=== PATIENT | male | born 1940 | race Caucasian/White ===

== ENCOUNTER 2017-10-19 09:02 | Day surgery (SDC) | payer MEDICARE, OTHER ==
[~2017-10-19] VITALS: Ht 175.3 cm; Wt 87.2 kg
[2017-10-19] MEDS ORDERED: LIPITOR20 MG PO ×2 (09:26→09:27)
[2017-10-19] MEDS ORDERED: PRINIVIL40 MG PO (09:26)
[2017-10-19] MEDS ORDERED: GLUCOPHAGE500 MG/TAB PO (09:28)
[2017-10-19] MEDS ORDERED: B-12 100 MCG PO (09:28)
[2017-10-19] MEDS ORDERED: XALATAN EYE DROPS OU (09:29)
[2017-10-19] MEDS ORDERED: COMBIGAN 0.2%-0.5 ML OU (09:30)
[2017-10-19] MEDS ORDERED: TRUSOPT OCUMETE10 ML OU (09:31)
[2017-10-19] MEDS ORDERED: ADVIL200 MG PO (09:31)
[2017-10-19 09:59] VITALS: BP 161/74; PULSE 50; TEMP 97.6
[2017-10-19 10:50] VITALS: BP 100/41; PULSE 53; TEMP 97.6
[2017-10-19 11:15] VITALS: BP 113/47; PULSE 48
[2017-10-19 11:30] VITALS: BP 122/74; PULSE 48
[2017-10-19 15:35] VITALS: BP 91/61; PULSE 56
== END 2017-10-19 12:05 | disposition home or self-care (01) ==
LOC: SDCO 09:02
DX: Z12.11 Encounter for screening for malignant neoplasm of colon (principal); Z86.010 Personal history of colon polyps; D12.2 Benign neoplasm of ascending colon; K59.00 Constipation, unspecified; K57.30 Diverticulosis of large intestine without perforation or abscess without bleeding; Z79.899 Other long term (current) drug therapy
CPT/HCPCS: J2250; J3010; J7042

== ENCOUNTER → 2020-08-31 | Outpatient (CLI) | payer MEDICARE, OTHER ==
[~2020-08-31] MED LIST: ADVIL200 MG PO; B-12 100 MCG PO; COMBIGAN 0.2%-0.5 ML OU; GLUCOPHAGE500 MG/TAB PO; LIPITOR20 MG PO; PRINIVIL40 MG PO; TRUSOPT OCUMETE10 ML OU; XALATAN EYE DROPS OU
== END ==
LOC: COL.RAD 14:48
DX: G30.1 Alzheimer's disease with late onset (principal); F02.81 Dementia in other diseases classified elsewhere, unspecified severity, with behavioral disturbance; G47.52 REM sleep behavior disorder; F51.5 Nightmare disorder

== ENCOUNTER → 2021-02-16 | Outpatient (CLI) | payer MEDICARE, OTHER ==
[~2021-02-16] MED LIST changes: +ARICEPT10 MG PO; -B-12 100 MCG PO; +BENADRYL25 M2 PO; +CEPHALEXIN500 M1 PO; +HCTZ 25MG TAB25 MG PO; +NAMENDA 10MG TA10 MG PO; +SEROQUEL50 MG PO; +VITAMIN B12 781 TAB PO; +VITRUM SENIOR1 TA2 PO
== END ==
LOC: COL.CARD 09:29
DX: G30.1 Alzheimer's disease with late onset (principal); F02.81 Dementia in other diseases classified elsewhere, unspecified severity, with behavioral disturbance; G47.52 REM sleep behavior disorder; I63.9 Cerebral infarction, unspecified
CPT/HCPCS: J2704

== ENCOUNTER → 2021-04-08 | Outpatient (CLI) | payer MEDICARE, OTHER | LOC: COL.RAD 08:35 | DX: R93.89 Abnormal findings on diagnostic imaging of other specified body structures (principal) ==

== ENCOUNTER → 2021-05-20 | Outpatient (CLI) | payer MEDICARE, OTHER | LOC: COL.RAD 11:29 | DX: R22.1 Localized swelling, mass and lump, neck (principal) ==

== ENCOUNTER 2021-09-28 12:17 | Inpatient (IN) | payer MEDICARE, OTHER ==
[~2021-09-28] VITALS: Ht 175.3 cm; Wt 84.7 kg
[2021-09-28 13:08] LABS: BASO % 0.7 % (0.0-2.0); EOS # 0.2 K/mm3 (0.0-0.7); EOS % 3.3 % (0.0-4.0); GRAN % 66.3 % (42.2-75.2); LYMPH # 0.9 K/mm3 (1.2-3.4); LYMPH % 19.6 % (20.0-51.0); MEAN CELL VOLUME 100 fl (80.0-100.0); MEAN CORPUSCULAR HEMOGLOBIN 32 pg (27-31); MEAN CORPUSCULAR HGB CONC 32 g/dl (33.0-37.0); MEAN PLATELET VOLUME 10.4 fl (7.4-10.4); MONO # 0.5 K/mm3 (0.1-0.6); MONO % 9.9 % (1.7-9.3); PLATELET COUNT 167 K/mm3 (130-400); RED BLOOD COUNT 3.44 M/mm3 (4.20-5.60); REDCELL DISTRIBUTION WIDTH-CV 13.5 % (11.5-14.5)
[2021-09-28 13:11] LABS: HEMATOCRIT 34.3 % (42.0-52.0)
[2021-09-28 13:24] LABS: ALANINE AMINOTRANSFERASE 15 U/L (0-55); ALBUMIN 3.5 gm/dL (3.4-4.8); ALKALINE PHOSPHATASE 74 U/L (40-150); ANION GAP 7 mmol/L (7-16); AST,SGOT 13 U/L (5-34); BILIRUBIN,TOTAL 0.5 mg/dL (0.2-1.2); BLOOD UREA NITROGEN 79 mg/dL (8-26); CALCIUM 9.1 mg/dL (8.4-10.2); CARBON DIOXIDE 15 mmol/L (23-31); CHLORIDE 118 mmol/L (98-107); CREATININE, serum 3.69 mg/dL (0.72-1.25); GLUCOSE 89 mg/dL (70-99); SODIUM 140 mmol/L (136-145); TOTAL PROTEIN 6.9 gm/dL (6.2-8.1)
[2021-09-28 13:28] LABS: COLLECTION METHOD CLEAN CATCH
[2021-09-28 13:31] LABS: POTASSIUM 6.3 mmol/L (3.5-4.5); TROPONIN-I < 0.010 ng/mL (0.00-0.033)
[2021-09-28 13:57] LABS: MUCOUS Present (NOT PRESENT); PH 5 (5-8); SQUAMOUS EPITHELIAL 0-2 /hpf (0-10); URINE APPEARANCE Hazy (CLEAR/HAZY); URINE BACTERIA None Seen /hpf (NONE SEEN); URINE BLOOD Negative (NEGATIVE); URINE GLUCOSE Negative (NEGATIVE); URINE KETONE Negative (NEGATIVE); URINE NITRATE Negative (NEGATIVE); URINE PROTEIN(semi-quant) Negative (NEGATIVE); URINE RBC 0-2 /hpf (0-2); URINE UROBILINOGEN Negative (NEGATIVE)
[2021-09-28 14:01] LABS: URINE COLOR Yellow (YELLOW)
[2021-09-28] MEDS ORDERED: NAMZARIC1 ECC PO (15:31)
[2021-09-28] MEDS ORDERED: GLUCOPHAGE500 MG/TAB PO (15:32)
[2021-09-28] MEDS ORDERED: B-121000 MCG PO (15:32)
[2021-09-28] MEDS ORDERED: COREG 3.123.125 MG/T PO (15:33)
[2021-09-28] MEDS ORDERED: ASPIRIN 32325 MG/TAB PO (15:33)
[2021-09-28] MEDS ORDERED: PLAVIX 75MG TAB75 MG PO (15:34)
[2021-09-28] MEDS ORDERED: HCTZ12.5TAB PO (15:34)
--- NOTE | 2021-09-28 15:37 | NUR ---
PATIENT ARRIVED TO UNIT IN STABLE CONDITION WITH DAUGHTER. VITALS WNL. NO COMPLAINTS AT THIS TIME. ASSESSMENTS AND MED REC COMPLETED BY THIS NURSE. ODESSA WITH NEPHRO IN WITH PATIENT NOW. CALL PLACED TO PHARMACY FOR MEDICATION NEEDED PER EMAR. PATIENT IS A&O X4, DOES HAVE HISTORY OF DEMENTIA THAT DAUGHTER STATES IS MILD. ABLE TO AMBULATE WELL ON OWN, INDEPENDENT AT HOME. NO SKIN ISSUES IDENTIFIED. CONTINENT OF B/B. FEEDS SELF. TAKES MEDS WHOLE. DAUGHTER STATES PATIENT DOES NOT DRINK FLUIDS WELL AND NEEDS CONSTANT ENCOURAGEMENT.
[2021-09-28 16:39] LABS: BASO % 0.7 % (0.0-2.0); EOS # 0.1 K/mm3 (0.0-0.7); EOS % 2.8 % (0.0-4.0); GRAN # 2.9 K/mm3 (1.4-6.5); GRAN % 63.5 % (42.2-75.2); HEMOGLOBIN 10.4 g/dl (13.5-18.0); LYMPH # 1.1 K/mm3 (1.2-3.4); MEAN CELL VOLUME 101 fl (80.0-100.0); MEAN CORPUSCULAR HEMOGLOBIN 32 pg (27-31); MEAN CORPUSCULAR HGB CONC 31 g/dl (33.0-37.0); MEAN PLATELET VOLUME 10.4 fl (7.4-10.4); MONO # 0.5 K/mm3 (0.1-0.6); MONO % 9.8 % (1.7-9.3); PLATELET COUNT 153 K/mm3 (130-400); RED BLOOD COUNT 3.29 M/mm3 (4.20-5.60); REDCELL DISTRIBUTION WIDTH-CV 13.5 % (11.5-14.5)
[2021-09-28 16:43] LABS: ALBUMIN 3.1 gm/dL (3.4-4.8); CALCIUM 8.7 mg/dL (8.4-10.2); CREATININE, serum 3.39 mg/dL (0.72-1.25); PHOSPHOROUS 3.4 mg/dL (2.3-4.7); POTASSIUM 5.6 mmol/L (3.5-4.5)
[2021-09-28 17:01] LABS: HEMATOCRIT 33.2 % (42.0-52.0)
[2021-09-28 20:56] VITALS: BP 135/55; PULSE 54; TEMP 98.7
--- NOTE | 2021-09-28 22:33 | NUR ---
POST VOID RESIDUAL ASSESSED IMMEDIATELY AFTER PT HAD AN UNMEASURED VOID. POST VOID RESIDUAL WAS 3 ML. WILL CONTINUE TO MONITOR.
--- NOTE | 2021-09-28 23:53 | NUR ---
Pt alert and oriented. Follows commands. Resting quietly. Denies pain at this time. Completed post-void residual per orders. Pt had 3ml in bladder after void. Pt tolerating PO. Monitoring intake and output. Shift assessment performed. Medications administered and education provided. VS stable. Afebrile. Satting WNL on room air. BP stable. HR running sinus imani in upper 50's. No significant skin issues noted. Pt stanby assist to BR, steady gate. Monitoring FSBS AC and HS. Pt does not report any questions at this time, will continue to monitor.
[2021-09-29 00:59] VITALS: BP 126/58; PULSE 48; PULSE 50; TEMP 98.2
[2021-09-29 04:02] VITALS: BP 120/62; PULSE 65; TEMP 98
--- NOTE | 2021-09-29 05:44 | NUR ---
No adverse events overnight. Pt alert and oriented, resting quietly. Pt denies chest pain/nausea/vomiting/weakness. Tolerating PO. Up to void x1 overnight. Post void residual recorded in previous note. VS stable. Afebrile. Remains on room air. HR in 50's overnight. FSBS monitored ACHS. Pt does not report any questions at this time, will continue to monitor.
--- NOTE | 2021-09-29 06:17 | NUR ---
Second post void residual taken. Pt voided 350 ml. Residual assessed immediately after and 2 ml was recorded in the bladder. Will continue to monitor.
[2021-09-29 07:34] VITALS: BP 125/59; PULSE 56; TEMP 97.9
--- NOTE | 2021-09-29 09:00 | NUR ---
PATIENT IV TO LEFT AC INFILTRATED AND CAUSING PAIN WITH FLUSHING, NO BLOOD RETURN. REMOVED. NEW IV START TO RIGHT HAND 22 GUAGE, TOLERATED WELL. FLUIDS INFUSING PER ORDER.
--- NOTE | 2021-09-29 09:52 | NUR ---
Initial visit; Patient and daughter thanked [employer] for looking in on him and offering God's blessings and to keep him in her prayers.
[2021-09-29 11:09] VITALS: BP 105/51; PULSE 57; TEMP 98.1
--- NOTE | 2021-09-29 12:01 | NUR ---
INES met with the patient to discuss discharge plan. The patient lives in [place] with his , Gloria, and their daughter, Giovanny (ph#[phone]). He reports independence with ADLs and has a cane. The patient's PCP is Dr. Morris Aviles. He states that his daughter picks up his medications for him. INES contacted the patient's daughter, Giovanny, to review the above. She confirms that she lives with the patient and his (her mother) and helps take care of them. She states that the patient is very independent. He receives his medications from [facility] in . The patient does not have a DPOA-HC in EMR, but Giovanny states that the patient does have one completed and that Dr. Aviles's office should have a copy of the document. PT are recommending home and have signed off of the patient, due to him being independent in the room. Lamontarnol confirms that the plan is for the patient to return home with family upon discharge. INES attempted to contact Chely at [facility] to request a copy of the patient's DPOA-HC. INES left a message with the security nurse. No additional needs at this time. *Discharge plan: home with family*
[2021-09-29 15:16] VITALS: BP 125/62; PULSE 54; TEMP 98.5
[2021-09-29 20:31] VITALS: BP 150/71; PULSE 73; TEMP 98.6
[2021-09-30 00:06] VITALS: BP 93/54; PULSE 56; TEMP 98.4
--- NOTE | 2021-09-30 04:06 | NUR ---
Pt alert and oriented, resting queitly, follows commands. IV fluids continuing. New IV started in the RAC after pt's other IV was pulled out. Pt denies pain at this time. Pt up to void, steady gait. Shift assessment performed. Medications administered per orders and education provided. VS stable. Afebrile. On room air. Pt tolerating PO. Resting queitly. Denies dizziness/weakness/nausea/vomiting. Pt does not report any questions at this time, will continue to monitor.
[2021-09-30 04:30] VITALS: BP 104/47; PULSE 87; TEMP 98.2
--- NOTE | 2021-09-30 06:20 | NUR ---
No adverse events overnight. Pt alert and oriented, follows commands. Resting queitly this morning. IV fluids continue. Pt denies pain. Denies nausea/ligtheadedness/weakness. Steady gait. Tolerating PO. VS stable. On room air. Pt does not report any questions at this time, will continue to monitor.
[2021-09-30 07:13] VITALS: BP 103/51; PULSE 52; TEMP 98.2
[2021-09-30 10:39] LABS: ALBUMIN 3.1 gm/dL (3.4-4.8); CALCIUM 8.8 mg/dL (8.4-10.2); CREATININE, serum 2.49 mg/dL (0.72-1.25); PHOSPHOROUS 2.7 mg/dL (2.3-4.7); POTASSIUM 4.9 mmol/L (3.5-4.5)
[2021-09-30 11:19] VITALS: BP 111/50; PULSE 53; TEMP 97.4
== END 2021-09-30 13:30 | disposition home or self-care (01) | DRG 641 ==
LOC: COL.ER 12:17 → MEDICAL 13:55
PROVIDERS: Emergency Medicine; Registered Nurse; ADMIT Internal Medicine Nephrology
DX: E87.5 Hyperkalemia (principal); N17.9 Acute kidney failure, unspecified; I95.9 Hypotension, unspecified; E86.0 Dehydration; E78.5 Hyperlipidemia, unspecified; H40.9 Unspecified glaucoma; N40.0 Benign prostatic hyperplasia without lower urinary tract symptoms; D63.1 Anemia in chronic kidney disease; M54.50 Low back pain, unspecified; I12.9 Hypertensive chronic kidney disease with stage 1 through stage 4 chronic kidney disease, or unspecified chronic kidney disease; E11.22 Type 2 diabetes mellitus with diabetic chronic kidney disease; N18.30 Chronic kidney disease, stage 3 unspecified; Z90.79 Acquired absence of other genital organ(s); Z79.84 Long term (current) use of oral hypoglycemic drugs; Z79.82 Long term (current) use of aspirin; Z87.891 Personal history of nicotine dependence; Z23 Encounter for immunization
CPT/HCPCS: OP; A9270; J0610; J1815; J7030

== ENCOUNTER → 2022-05-19 | Outpatient (CLI) | payer MEDICARE, OTHER ==
[~2022-05-19] MED LIST changes: +ASPIRIN 32325 MG/TAB PO; +B-121000 MCG PO; +COREG 3.123.125 MG/T PO; +HCTZ12.5TAB PO; +NAMZARIC1 ECC PO; +PLAVIX 75MG TAB75 MG PO
== END ==
LOC: COL.RAD 13:41
DX: I65.23 Occlusion and stenosis of bilateral carotid arteries (principal)

== ENCOUNTER 2023-06-08 08:22 | Day surgery (SDC) | payer MEDICARE, OTHER ==
[~2023-06-08] VITALS: Ht 175.3 cm; Wt 85.9 kg
[~2023-06-08 08:22] MED LIST changes: +ASPIRIN 81M81 MG/TA2 PO; +B COMPLEX PO; +CHOLECALCIFEROL PO; +LIPITOR 10MG10 MG PO; +LOVENOX 4040 MG/0.4 SQ; +LR 1,000 ML IV SCH; +NORCO 325 MG-51 TAB PO; +OSCAL 500 TAB500 MG PO; +OYSTER CALCIUM PO; +Ondansetron 4 MG/2 ML VIAL IV PRN; +PROTONIX 40MG T40 MG PO
--- NOTE | 2023-06-08 09:55 | NUR ---
Pt arrived with daughter for procedure, VSS WNL, RR regular and unlabored; pt has early onset Alzheimers disease, per daughter, but still understands and comprehends; daughter also facilitating translation for questions, though pt can speak, read, understand burkinan; reviewed and signed consents; reviewed history/pharm/allergies/meds. Pt did take his Plavis yesterday morning, RN notified Dr. Thomas and he is okay to proceed.
[2023-06-08] MEDS ORDERED: EZALLOR SPRINKLE5 MG PO (10:04)
[2023-06-08 10:05] VITALS: BP 163/84; PULSE 66; TEMP 97.2
[2023-06-08] MEDS ORDERED: Lidocaine PF 2% (20 MG/ML) 5 ML VIAL ONE (10:18)
[2023-06-08 10:55] VITALS: BP 140/71; PULSE 57; TEMP 97
--- NOTE | 2023-06-08 10:55 | NUR ---
1050:DR. GRIDER SPOKE WITH PATIENTS FAMILY MEMBER IN ROOM REGARDING PROCEDURE FINDINGS AND PLAN. 1055: PATIENT AMBULATED TO CHAIR WITH STEADY GAIT, ASSIST OF 2. ALERT AND AWAKE. DENIES PAIN, NAUSEA AND SHORTNESS OF BREATH. BREATHING REGULAR AND UNLABORED ON ROOM AIR. SKIN WARM AND DRY. IV IN PLACE. NURSE HANDOFF COMPLETED IN ROOM. SEE CHART FOR VITAL SIGNS. PATIENT HAD WATER, APPLESAUCE AND VANILLA PUDDING. FOOD AND DRINK TOLERATED WELL. NO DSYPHAGIA. CALL LIGHT IN REACH. DAUGHTER PRESENT IN ROOM.
[2023-06-08 11:00] VITALS: BP 148/77; PULSE 62
[2023-06-08 11:15] VITALS: BP 170/78; PULSE 65
[2023-06-08 11:30] VITALS: BP 143/75; PULSE 65
--- NOTE | 2023-06-08 11:45 | NUR ---
1135: DISCHARGE TEACHING COMPLETED WITH PRINTED EDUCATION AND INSTRUCTIONS SENT HOME WITH PATIENT. PATIENT VERBALIZED UNDERSTANDING OF TEACHING. 1137: IV REMOVED. GAUZE AND COBAN PLACED OVER SITE. 1145: PATIENT DISCHARGED HOME WITH FAMILY TRANSPORT.
== END 2023-06-08 11:45 | disposition home or self-care (01) ==
LOC: SDCO 08:22
DX: D12.5 Benign neoplasm of sigmoid colon (principal); K57.30 Diverticulosis of large intestine without perforation or abscess without bleeding; D50.0 Iron deficiency anemia secondary to blood loss (chronic); Z87.891 Personal history of nicotine dependence
CPT/HCPCS: J2704; J7120